=== PATIENT | female | born 1960 | race Caucasian/White ===

== ENCOUNTER 2016-10-28 06:43 | Inpatient (IN) ==
--- NOTE | 2016-10-27 20:44 | Discharge Summary ---
<Ileana Hurtado - Last Filed: 10/27/16 20:41> Date of Encounter: 10/27/16 - Discharge Diagnosis (1) Arthritis of knee, right Priority: Primary Status: Acute (2) Obesity Priority: Secondary Status: Chronic Qualifiers: Obesity type: unspecified obesity type Obesity severity: morbid Qualified Code(s): E66.01 - Morbid (severe) obesity due to excess calories (3) Hypertension Priority: Secondary Status: Chronic Qualifiers: Hypertension type: essential hypertension Qualified Code(s): I10 - Essential (primary) hypertension (4) CAD (coronary artery disease) Priority: Secondary Status: Chronic Qualifiers: Coronary Disease-Associated Artery/Lesion type: unspecified vessel or lesion type [place] vs. 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 insulin use: unspecified mcc insulin use status Qualified Code(s): E11.8 - Type 2 diabetes mellitus with unspecified complications (6) History of panic attacks Priority: Secondary Status: Chronic - Discharge Medications Home Medications: Amiloride/Hydrochlorothiazide [Amiloride HCl-Hctz 5-50 mg Tab] 1 each PO QAM [History] Celecoxib [Celebrex] 200 mg PO BID 08/08/15 [History] Esomeprazole Magnesium [Nexium] 40 mg PO QAM 08/08/15 [History] Losartan [Cozaar] 25 mg PO QAM 08/08/15 [History] Simvastatin [Zocor] 20 mg PO HS 08/16/16 [History] Aspirin Enteric Coated [Aspirin EC] 325 mg PO DAILY #21 tablet. 10/27/16 [Rx] OxyCODONE Immed Rel [Roxicodone 5 MG] 5 - 10 mg PO Q6HR PRN #40 tablet 10/27/16 [Rx] clonazePAM [Klonopin] 0.25 mg PO TID PRN #9 tablet 10/27/16 [Rx] ARIPiprazole [Abilify] 5 mg PO HS 10/28/16 [History] Aripiprazole [Abilify] 5 mg PO DAILY 10/28/16 [History] Aspirin [Lo-Dose Aspirin EC] 81 mg PO DAILY 10/28/16 [History] Cetirizine HCl [Zyrtec] 10 mg PO DAILY 10/28/16 [History] DULoxetine [Cymbalta] 30 mg PO DAILY 10/28/16 [History] Montelukast [Singulair] 10 mg PO HS 10/28/16 [History] Potassium Chloride [K-Tab ER] 20 meq PO BID 10/28/16 [History] Sertraline [Zoloft] 50 mg PO DAILY 10/28/16 [History] Tramadol HCl [Ultram] 50 mg PO Q6H PRN 10/28/16 [History] clonazePAM [Klonopin] 1 mg PO BID PRN 10/28/16 [History] Allergies/Adverse Reactions: Allergies Amoxicillin [From Augmentin] Allergy (Verified 10/28/16 08:36) Hives atenolol Allergy (Verified 10/28/16 08:36) Anaphylaxis clavulanic acid [From Augmentin] Allergy (Verified 10/28/16 08:36) Hives Erythromycin Base [From Erythrocin] Allergy (Verified 10/28/16 08:36) Hives Penicillins Allergy (Verified 10/28/16 08:36) Hives ramipril [From Altace] Allergy (Verified 10/28/16 08:36) Anaphylaxis Primary care physician: Stephany Agustin CNP - Patient Status Disposition: Transfer Inpatient Rehab Fac Condition: Good - Discharge Instructions Follow Up With: Stephany Agustin CNP [Primary Care Provider] - - Hospital Course Hospital course: Ms. Allen is a 55 year old female - Time Spent with Patient Total time spent providing and/or coordinating discharge services: <Bentley Solis - Last Filed: 10/31/16 08:07> Date of Encounter: 10/31/16 Time of Encounter: 08:07 - Discharge Diagnosis (1) Hypertension Priority: Secondary Status: Chronic Qualifiers: Hypertension type: essential hypertension Qualified Code(s): I10 - Essential (primary) hypertension (2) CAD (coronary artery disease) Priority: Secondary Status: Chronic Qualifiers: Coronary Disease-Associated Artery/Lesion type: unspecified vessel or lesion type [place] vs. 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 insulin use status Qualified Code(s): E11.8 - Type 2 diabetes mellitus with unspecified complications (4) Diastolic heart failure Priority: Secondary Status: Chronic Qualifiers: Heart failure chronicity: chronic Qualified Code(s): I50.32 - Chronic diastolic (congestive) heart failure (5) Major depression, recurrent Priority: Secondary Status: Chronic Qualifiers: Active/Remission status: currently active Major depression episode severity : unspecified Qualified Code(s): F33.9 - Major depressive disorder, recurrent , unspecified (6) Arthritis of knee, right Priority: Primary Status: Acute (7) Obesity Priority: Secondary Status: Chronic Qualifiers: Obesity type: unspecified obesity type Obesity severity: morbid Qualified Code(s): E66.01 - Morbid (severe) obesity due to excess calories (8) Acute blood loss anemia Priority: Primary Status: Acute Primary care physician: Stephany Agustin CNP - Patient Status Functional capacity at discharge: uses cane/walker Overall status at discharge: patient is progressing back to baseline - Hospital Course Hospital course: Ms. Allen is a 55 year old female The patient had an uneventful postoperative course. They received antibiotics and physical therapy and were discharged in stable condition. There will follow -up in the office in 2 weeks. Aspirin DVT prophylaxis - Time Spent with Patient Total time spent providing and/or coordinating discharge services:
--- NOTE | 2016-10-27 20:52 | Physician Discharge Referral ---
ExtendedCare Referral Info Transfer To: [facility] Provider in Charge: Will Institutional Level of Care: Skilled - Diagnosis (1) Arthritis of knee, right Status: Acute (2) Obesity Priority: Secondary Status: Chronic (3) Hypertension Priority: Secondary Status: Chronic (4) CAD (coronary artery disease) Priority: Secondary Status: Chronic (5) Diabetes Priority: Secondary Status: Chronic (6) History of panic attacks Priority: Secondary Status: Chronic Prognosis: Good Aware of Diagnosis: Patient Aware of Prognosis: Patient - Transfer Medications Prescriptions: OxyCODONE Immed Rel [Roxicodone 5 MG] 5 - 10 mg PO Q6HR PRN #40 tablet PRN Reason: Pain Aspirin Enteric Coated [Aspirin EC] 325 mg PO DAILY #21 tablet. clonazePAM [Klonopin] 0.25 mg PO TID PRN #9 tablet PRN Reason: Anxiety Home Medications: Amiloride/Hydrochlorothiazide [Amiloride HCl-Hctz 5-50 mg Tab] 1 each PO QAM [History] Celecoxib [Celebrex] 200 mg PO BID PRN 08/08/15 [History] Esomeprazole Magnesium [Nexium] 40 mg PO QAM 08/08/15 [History] Losartan [Cozaar] 25 mg PO QAM 08/08/15 [History] Sertraline [Zoloft] 100 mg PO QAM 08/08/15 [History] Simvastatin [Zocor] 20 mg PO DAILY 08/16/16 [History] metFORMIN [Glucophage] 500 mg PO DAILY 08/16/16 [History] Aspirin Enteric Coated [Aspirin EC] 325 mg PO DAILY #21 tablet. 10/27/16 [Rx] OxyCODONE Immed Rel [Roxicodone 5 MG] 5 - 10 mg PO Q6HR PRN #40 tablet 10/27/16 [Rx] clonazePAM [Klonopin] 0.25 mg PO TID PRN #9 tablet 10/27/16 [Rx] Allergies/Adverse Reactions: Allergies Amoxicillin [From Augmentin] Allergy (Verified 09/03/16 18:57) Hives atenolol Allergy (Verified 09/03/16 18:57) Anaphylaxis clavulanic acid [From Augmentin] Allergy (Verified 09/03/16 18:57) Hives Erythromycin Base [From Erythrocin] Allergy (Verified 04/25/17 18:57) Hives Penicillins Allergy (Verified 09/03/16 18:57) Hives ramipril [From Altace] Allergy (Verified 09/03/16 18:57) Anaphylaxis - Respiratory Orders Smoking Cessation: Smoking cessation has been advised. For more information, call the [place] Tobacco Quit Line at 3-923-NEDR-NOW. - Ancillary Orders May use pressure relief devices daily prn, May go on STACIE w/family/respon republican w /meds at nurse discretion PRN, May consult with Dentist, Balance Engineer, Receiving Barn Custodian PRN - Mobility Orders Ambulate - Rehabiliation Orders Rehab Potential: Good Rehab Orders: ROM Exercises, Evaluation for Physical Therapy, Evaluation for Occupational Therapy - Treatments List/Other: Opsite dressing in place. Keep intact until follow up appointment, only remove if >50% saturated and replace with appropriate dressing. Do not get dressing wet , - Diet Orders Regular CERTIFICATION: I certify that the transfer of the above named patient to an Extended Care Facility is necessary for the continuing treatment of the diagnosis listed. The above information is true and accurate reflection of patient's current condition. Confidential - Redisclosure prohibited without a patient's written consent.
--- NOTE | 2016-10-28 06:24 | History & Physical Report ---
Date of Encounter: 10/28/16 Time of Encounter: 06:24 24 Hour HP Update - Instructions Instructions: If the History and Physical is less than 30 days old and was completed prior to A.M. admission and or procedure and has NOT been updated on calendar day of procedure please complete this update prior to performing procedure. - Update Patient reports changes in Medical Condition: No Changes in examination, assessment, or condition: No Changes in Medication: No Preop tests/diagnostics Reviewed: Yes Surgery Remains Indicated: Yes Consent for Planned Operative Procedure(s) Verified: Yes - Pre-Operative Checklist Preoperative Checklist Indicated: No Prophylactic Antibiotic Ordered: Yes Is VTE Prophylaxis Indicated?: Yes
[2016-10-28] MEDS ORDERED: *HR* FentaNYL (PF) 100 MCG/2 ML VIAL ONE (07:04)
[2016-10-28] MEDS ORDERED: Lidocaine -MPF 2% 2 ML VIAL ONE (07:04)
[2016-10-28] MEDS ORDERED: *HR* Phenylephrine 10 MG/ML VIAL ONE (07:04)
[2016-10-28] MEDS ORDERED: Dexamethasone 4 MG/ML VIAL ONE (07:04)
[2016-10-28] MEDS ORDERED: Ondansetron 4 MG/2 ML VIAL ONE (07:04)
[2016-10-28] MEDS ORDERED: *HR* Midazolam HCl 2 MG/2 ML VIAL ONE ×2 (07:04→08:08)
[2016-10-28] MEDS ORDERED: *HR* Propofol 200 MG/20 ML VIAL IVP ONE (07:05)
[2016-10-28] MEDS ORDERED: Clindamycin 900 MG/50 ML 900 MG/50 ML IV.SOLN IVPB ONE ×3 (07:22→08:17)
[2016-10-28] MEDS ORDERED: Lidocaine -MPF 1% 2 ML VIAL ID ONE (07:22)
[2016-10-28] MEDS ORDERED: Ringers Solution, Lactated 1,000 ML IVC SCH ×2 (07:30→11:13)
--- NOTE | 2016-10-28 07:54 | Anesthesia Evaluation PreOp ---
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 History: Denies Any Significant HX Other Medical History: Diabetes Type II, Other (Morbid Obesity) Anesthesia History: No Prior Anesthetic Complications : No Alcohol Use: rarely Drug use: none Medications and Allergies Amiloride/Hydrochlorothiazide [Amiloride HCl-Hctz 5-50 mg Tab] 1 each PO QAM [History] Celecoxib [Celebrex] 200 mg PO BID PRN 08/08/15 [History] Esomeprazole Magnesium [Nexium] 40 mg PO QAM 08/08/15 [History] Losartan [Cozaar] 25 mg PO QAM 08/08/15 [History] Sertraline [Zoloft] 100 mg PO QAM 08/08/15 [History] Simvastatin [Zocor] 20 mg PO DAILY 08/16/16 [History] metFORMIN [Glucophage] 500 mg PO DAILY 08/16/16 [History] Aspirin Enteric Coated [Aspirin EC] 325 mg PO DAILY #21 tablet. 10/27/16 [Rx] OxyCODONE Immed Rel [Roxicodone 5 MG] 5 - 10 mg PO Q6HR PRN #40 tablet 10/27/16 [Rx] clonazePAM [Klonopin] 0.25 mg PO TID PRN #9 tablet 10/27/16 [Rx] Allergies Amoxicillin [From Augmentin] Allergy (Verified 09/03/16 18:57) Hives atenolol Allergy (Verified 09/03/16 18:57) Anaphylaxis clavulanic acid [From Augmentin] Allergy (Verified 09/03/16 18:57) Hives Erythromycin Base [From Erythrocin] Allergy (Verified 09/03/16 18:57) Hives Penicillins Allergy (Verified 09/03/16 18:57) Hives ramipril [From Altace] Allergy (Verified 09/03/16 18:57) Anaphylaxis - Meds/Allergy Pre-op Review Medications Reviewed: Yes Allergies Reviewed: Yes Beta Blockers on Current Med List: No Anesthesia Results - Labs Laboratory Tests 10/10/16 10/10/16 14:38 14:38 Hgb 14.2 Hct 43.8 Plt Count 327 Sodium 140 Potassium 3.9 BUN 17 Creatinine 0.76 - Imaging EKG: report reviewed (SR) Additional studies: ECHO EF70% Anesthesia Exam O2 Sat Height 1.63 m Height 1.63 m Weight 123.831 kg Weight 123.831 kg O2 Sat by Pulse Oximetry 97 Vital Signs Temp Pulse Resp BP Pulse Ox 97.7 F 68 18 125/80 97 10/28/16 07:10 10/28/16 07:10 10/28/16 07:10 10/28/16 07:10 10/28/16 07:10 Height: 5'4 Weight: 273 lbs NPO (# of Hours): MN Pain Scale: 0 - HEENT Pupil (Motor): Pupils equal, EOMI Mallampati: III Teeth: Normal Oral Opening: Less than or equal to 3 - VENDOR QUALITY SUPERVISOR LOC: Oriented VENDOR QUALITY SUPERVISOR Motor: Normal RUE, Normal LUE, Normal RLE, Normal LLE, Normal Face VENDOR QUALITY SUPERVISOR Sensory: Normal: RUE, LUE, RLE, LLE, Face - Cardiac Rhythm: Regular Murmur: None JVD: No Carotid Bruit: No - Pulmonary Breath Sounds: bilateral Clear Respiratory Effort: Symmetrical Anesthesia Assess/Plan ASA Score: 3 (HTN MO) Modified Mercy Scale for Level of Consciousness: Cooperative, oriented, and tranquil Anesthetic Plan: General, Regional Monitoring Plan: Standard Monitors Recovery Plan: PACU (Discussed GA and RA, agrees to proceed)
[2016-10-28] MEDS ORDERED: Albuterol 2.5 MG/3 ML NEBULIZER ONE (08:17)
--- NOTE | 2016-10-28 08:19 | Anesthesia Procedures ---
Date of Encounter: 10/28/16 Time of Encounter: Procedures: Anesthesia - Nerve Block Procedure Date: 10/28/16 Time: Checklist: Correct Patient Identifier, Correct procedure, History checked Correct side: Right Blood Thinner: No Monitor Applied: EKG, BP, Pulse Oximetry Supplemental Oxygen via Nasal Cannula (L/min): 2 Sedation: Versed (mg): 4 Sedation: Fentanyl (mcg): 100 Indication: Post Op Analgesia Pre-op Neuro Deficits: No Block Type: Femoral, Other (iPACK) Catheter placed: No Sterile Technique: Yes Ultrasound used: Yes Anatomy identified: Yes Visual spread of Local: Yes Neuro Stimulation: Yes Nerve Stimulator Range: 0.2 - 0.4 mA Blood on Needle Aspiration: No Smooth Injection of Local: Yes Pain with Injection of Local: No Prep: Chlorhexadine Needle: 22 x 50 mm Stimuplex, 21 x 100 mm Stimuplex Local: 0.25% Bupivicaine w/Clonidine 20 mcg/cc (30 ml iPACK), Other (marcaince 0.5% with 8 of decadron 30ml femoral) Volume (cc): 60 total Number of Attempts: 1 Complications: None/effective block Vitals: vss
[2016-10-28] MEDS ORDERED: *HR* HYDROmorphone (PF) 1 MG/ML SYRINGE IVP PRN ×2 (09:32→11:13)
--- NOTE | 2016-10-28 10:01 | Orthopedic Operative Note ---
Date of procedure: 10/28/16 Pre-op diagnosis: right knee arthritis Post-op diagnosis: same Procedure: Procedure: Right Total knee replacement Estimated blood loss: 400 cc Hardware: Metal and polyethylene replacement: Biomet Femur: 70 [id number] Tibia: 75 [id number] Najma insert: 10 Patella: 37 Exam Under anesthesia: Loss full extension 10 degrees Procedural Notes: grade 4 arthritic changes all 3 com Operative procedure: The patient was brought to the operating room and placed on the operating room table. After general anesthesia was administered the operative knee was examined. Findings were noted in the exam under anesthesia. The operative extremity was prepped and draped in sterile surgical fashion. The patient received IV antibiotics prior to skin incision. A standard midline incision was made centered over the patella. The incision was made through the skin and subcutaneous tissue. A medial parapatellar tendon approach was performed. Care was taken to preserve tissue along the medial aspect of the patella. And to protect the patella tendon. The deep MCL was released off the medial tibia. The infra patella fat pad was excised. Knee was brought into flexion. grade 4 arthritic changes all 3 compartments. The entry hole was made for the intramedullary femoral guide. The guide was seated in 6 degrees of valgus. Anterior cut was made followed by the distal cut. The PCL the medial and the lateral menisci were excised. The tibia was subluxed forward. The entry hole was made for the intramedullary tibial guide. Guide was seated to resect 2 mm off the more abnormal side. The knee was brought into flexion the distal femur was sized to a 70. The femur was first reamed to a [id number] The femoral guide was seated, the anterior cut was made followed by the posterior condylar cut, followed by the chamfer cuts. The finishing guide was seated the box cut was made. Trial had good fit and fixation The tibia was sized to a an 75 The tibia was first reamed [id number] . Trial reduction revealed full extension no varus valgus instability with the appropriate 10 insert. The patella was everted and cut was made at the level of the insertion of the quadriceps and patella tendon. The patella was sized to a 37 the guide was seated and the lug holes are drilled. Trial reduction revealed excellent patella tracking. All trial components were removed all bony surfaces were irrigated. Components were assembled on the back table. The femur was cemented first followed by the tibia. The 10 Najma was seated and secured. The knee was brought into full extension. The patella was cemented and held in place with the patellar holding clamp. After the cement had hardened, the knee sat for 2 minutes with a Betadine saline solution. The knee was then irrigated out with 2 L of pulse irrigation. The extensor mechanism was closed with #2 FiberWire suture and #2 PDS suture. The subcutaneous tissue was then irrigated and closed deep with #1 PDS suture superficially with 0 PDS suture and skin was closed with skin laiht The patient was then placed in a sterile dressing and a postoperative brace extubated and transferred to recovery room in stable condition. Anesthesia: YVONNE Surgeon: Bentley Solis Production Planning Supervisor: Adela Turcios Condition: stable Disposition: PACU
[2016-10-28 10:56] LABS: Hematocrit 38.6 % (35.3-44.9)
--- NOTE | 2016-10-28 10:59 | Anesthesia Evaluation Post Op ---
Date of Encounter: 10/28/16 Time of Encounter: 10:59 - Vital Signs Vital Signs: Vital Signs/O2 Sat, Most Current Temp Pulse Resp BP Pulse Ox 97.0 F L 71 18 141/83 94 10/28/16 10:29 10/28/16 10:49 10/28/16 10:49 10/28/16 10:49 10/28/16 10:49 - Lungs Lungs: Clear Ascult./Percussion - Airway Airway: Non-obstructed - Cardiovascular Regular Rate - Mental Status Mental Status: Asleep with brisk response to light stimulation - Pain Pain Scale: 3 Pain Scale used: Numeric (1 - 10) - Nausea Vomiting Nausea Vomiting: Not Present - Hydration Hydration: NPO, Has not voided - Discharge PostOp Status: Transfer Patient to floor
[2016-10-28] MEDS ORDERED: Naloxone 0.4 MG/ML INJ IVP PRN (11:13)
[2016-10-28] MEDS ORDERED: clonazePAM 1 MG TABLET PO PRN (11:13)
[2016-10-28] MEDS ORDERED: Dextrose Gel 15 GM PO PRN ×2 (11:13)
[2016-10-28] MEDS ORDERED: MOM Conc 10 ML UD.LIQ PO PRN (11:13)
[2016-10-28] MEDS ORDERED: D5% in Water 1,000 ML IVC PRN (11:13)
[2016-10-28] MEDS ORDERED: Ondansetron 4 MG/2 ML VIAL IVP PRN (11:13)
[2016-10-28] MEDS ORDERED: *HR* Dextrose 50 % in Water (Syg) 50 ML SYRINGE IVP PRN (11:13)
[2016-10-28] MEDS ORDERED: Temazepam 15 MG CAPSULE PO PRN (11:13)
[2016-10-28] MEDS ORDERED: Sennosides 8.6 MG TABLET PO PRN (11:13)
[2016-10-28] MEDS ORDERED: traMADol 50 MG TABLET PO PRN (11:13)
[2016-10-28] MEDS: *HR* OxyCODONE Immed Rel 5 MG TABLET PO PRN ×3 (12:31→21:17)
[2016-10-28] MEDS: Insulin LISPRO 300 UNITS/3 ML VIAL SQ SCH ×3 (14:02→21:17)
[2016-10-28] MEDS ORDERED: Bupivacaine/Clonidine Syringe 1 EACH SYRINGE ONE (17:07)
[2016-10-28] MEDS: Clindamycin 900 MG/50 ML 900 MG/50 ML IV.SOLN IVPB SCH ×2 (17:09→23:47)
[2016-10-28] MEDS: *HR* Enoxaparin 30 MG/0.3 ML SYRINGE SQ SCH (17:09)
[2016-10-28] MEDS ORDERED: *HR* Enoxaparin 30 MG/0.3 ML SYRINGE SQ SCH (18:00)
[2016-10-28] MEDS: Celecoxib 200 MG CAPSULE PO SCH (21:16)
[2016-10-28] MEDS: ARIPiprazole 5 MG TABLET PO SCH (21:17)
[2016-10-29] MEDS: *HR* OxyCODONE Immed Rel 5 MG TABLET PO PRN ×3 (04:06→21:18)
[2016-10-29] MEDS: *HR* Enoxaparin 30 MG/0.3 ML SYRINGE SQ SCH ×2 (05:12→17:28)
[2016-10-29 05:50] LABS: Hematocrit 32.2 % (35.3-44.9)
[2016-10-29 05:52] LABS: Hemoglobin 10.9 g/dL (11.5-15.4)
[2016-10-29 06:06] LABS: BUN/Creatinine Ratio 18 (6-26); Blood Urea Nitrogen 12 mg/dL (7-20); Calcium 8.7 mg/dL (8.6-10.8); Carbon Dioxide 29 mEq/L (19-29); Chloride 100 mEq/L (98-109); Glucose 153 mg/dL (70-99); Osmolality,Calculated 287 (280-300); Potassium 3.9 mEq/L (3.5-4.5); Sodium 137 mEq/L (136-145); eGFR For African Americans > 60 (> 60); eGFR For Non-African Americans > 60 (> 60)
--- NOTE | 2016-10-29 06:38 | Orthopedics Progress Note ---
Date of Encounter: 10/29/16 Time of Encounter: 06:38 - Assessment and Plan (1) Hypertension Current Visit: No Status: Chronic Qualifiers: Hypertension type: essential hypertension Qualified Code(s): I10 - Essential (primary) hypertension (2) CAD (coronary artery disease) Current Visit: No Status: Chronic Qualifiers: Coronary Disease-Associated Artery/Lesion type: unspecified vessel or lesion type [place] vs. transplanted heart: unspecified whether [place] or transplanted heart Associated angina: angina presence unspecified Qualified Code(s): I25.10 - Atherosclerotic heart disease of [place] coronary artery without angina pectoris (3) Diabetes Current Visit: No Status: Chronic Qualifiers: Diabetes mellitus type: type 2 Diabetes mellitus complication status: with unspecified complications Diabetes mellitus intermediate accountant insulin use: unspecified intermediate accountant insulin use status Qualified Code(s): E11.8 - Type 2 diabetes mellitus with unspecified complications (4) Diastolic heart failure Current Visit: No Status: Chronic Qualifiers: Heart failure chronicity: chronic Qualified Code(s): I50.32 - Chronic diastolic (congestive) heart failure (5) Major depression, recurrent Current Visit: No Status: Chronic Qualifiers: Active/Remission status: currently active Major depression episode severity : unspecified Qualified Code(s): F33.9 - Major depressive disorder, recurrent , unspecified (6) Arthritis of knee, right Current Visit: Yes Status: Acute (7) Obesity Current Visit: Yes Status: Chronic Qualifiers: Obesity type: unspecified obesity type Obesity severity: morbid Qualified Code(s): E66.01 - Morbid (severe) obesity due to excess calories Subjective Interval history: Patient was seen this morning doing well without complaints. Afebrile vital signs stable. Operative extremity: Neurovascularly intact Dressing clean dry and intact Calves nontender Assessment and plan: Continue with postoperative care Hematocrit 32 Objective Vital signs: Vital Signs Temp Pulse Resp BP Pulse Ox 10/29/16 03:33 98.2 F 82 17 124/74 95 10/29/16 00:39 98.4 F 74 17 120/69 94 10/28/16 20:27 98.3 F 81 18 112/72 92 10/28/16 15:55 107/62 10/28/16 14:24 96 10/28/16 14:20 70 14 135/79 93 10/28/16 12:35 98.1 F 73 18 123/78 95 10/28/16 12:01 97.7 F 70 18 115/76 93 10/28/16 11:15 97.9 F 71 18 122/80 95 10/28/16 10:59 97.0 F L 71 18 125/82 93 10/28/16 10:49 71 18 141/83 94 10/28/16 10:39 76 14 130/85 93 10/28/16 10:29 97.0 F L 85 14 149/89 95 10/28/16 08:48 64 16 117/70 94 10/28/16 08:39 59 16 119/77 93 10/28/16 08:33 16 16 123/62 94 10/28/16 08:29 97.7 F 68 18 125/80 10/28/16 08:24 62 16 123/82 94 10/28/16 07:10 97.7 F 68 18 125/80 97 Intake and Output 10/28/16 10/28/16 10/29/16 15:59 23:59 07:59 Intake Total 50 / 50 50 / 50 Output Total 850 / 850 Balance -800 / -800 50 / 50 Intake: IV Fluids 50 / 50 50 / 50 Cleocin Premix 900 MG/50 50 / 50 50 / 50 ML 900 mg In 50 ml @ 50 mls/hr IVPB Q8HR [facility] Rx#: [id number] Oral 0 / 0 Output: Urine 50 / 50 Estimated Blood Loss 800 / 800 Other: # Voids 1 Weight 123.831 kg 130.2 kg Blood Glucose* 127 188 Patient Weight 10/29/16 23:59 Weight 130.2 kg - Labs CBC & BMP: 10/29/16 04:16 10/29/16 04:16 Labs: Abnormal lab results Hgb 10.9 g/dL (11.5-15.4) L D 10/29/16 04:16 Hct 32.2 % (35.3-44.9) L 10/29/16 04:16 Glucose 153 mg/dL (70-99) H 10/29/16 04:16 POC Glucose 188 (58-89) H 10/28/16 20:26 - VTE Documentation of Mechanical Device: Venous foot pump, device Consult Discharge Plan - Plan Referrals: Stephany Agustin, TRIM INSTALLER [Primary Care Provider] -
[2016-10-29] MEDS: ARIPiprazole 5 MG TABLET PO SCH (08:23)
[2016-10-29] MEDS: Insulin LISPRO 300 UNITS/3 ML VIAL SQ SCH ×4 (08:23→20:54)
[2016-10-29] MEDS: Celecoxib 200 MG CAPSULE PO SCH ×2 (08:23→20:53)
[2016-10-29] MEDS: Aspirin Enteric Coated 81 MG Tablet PO SCH (08:23)
[2016-10-29] MEDS: Loratadine 10 MG TABLET PO SCH (08:24)
[2016-10-30] MEDS: *HR* Enoxaparin 30 MG/0.3 ML SYRINGE SQ SCH ×2 (05:22→17:46)
[2016-10-30 05:32] LABS: Hematocrit 28.2 % (35.3-44.9)
[2016-10-30 05:34] LABS: Hemoglobin 9.3 g/dL (11.5-15.4)
[2016-10-30 05:43] LABS: BUN/Creatinine Ratio 25 (6-26); Blood Urea Nitrogen 17 mg/dL (7-20); Calcium 8.5 mg/dL (8.6-10.8); Carbon Dioxide 28 mEq/L (19-29); Chloride 101 mEq/L (98-109); Glucose 136 mg/dL (70-99); Osmolality,Calculated 288 (280-300); Potassium 3.6 mEq/L (3.5-4.5); Sodium 137 mEq/L (136-145); eGFR For African Americans > 60 (> 60); eGFR For Non-African Americans > 60 (> 60)
[2016-10-30] MEDS: Insulin LISPRO 300 UNITS/3 ML VIAL SQ SCH ×4 (07:43→21:11)
--- NOTE | 2016-10-30 08:22 | Orthopedics Progress Note ---
Date of Encounter: 10/30/16 Time of Encounter: 08:22 - Assessment and Plan (1) Hypertension Current Visit: No Status: Chronic Qualifiers: Hypertension type: essential hypertension Qualified Code(s): I10 - Essential (primary) hypertension (2) CAD (coronary artery disease) Current Visit: No Status: Chronic Qualifiers: Coronary Disease-Associated Artery/Lesion type: unspecified vessel or lesion type [place] vs. transplanted heart: unspecified whether [place] or transplanted heart Associated angina: angina presence unspecified Qualified Code(s): I25.10 - Atherosclerotic heart disease of [place] coronary artery without angina pectoris (3) Diabetes Current Visit: No Status: Chronic Qualifiers: Diabetes mellitus type: type 2 Diabetes mellitus complication status: with unspecified complications Diabetes mellitus intermediate project manager insulin use: unspecified intermediate project manager insulin use status Qualified Code(s): E11.8 - Type 2 diabetes mellitus with unspecified complications (4) Diastolic heart failure Current Visit: No Status: Chronic Qualifiers: Heart failure chronicity: chronic Qualified Code(s): I50.32 - Chronic diastolic (congestive) heart failure (5) Major depression, recurrent Current Visit: No Status: Chronic Qualifiers: Active/Remission status: currently active Major depression episode severity : unspecified Qualified Code(s): F33.9 - Major depressive disorder, recurrent , unspecified (6) Arthritis of knee, right Current Visit: Yes Status: Acute (7) Obesity Current Visit: Yes Status: Chronic Qualifiers: Obesity type: unspecified obesity type Obesity severity: morbid Qualified Code(s): E66.01 - Morbid (severe) obesity due to excess calories (8) Acute blood loss anemia Current Visit: Yes Status: Acute Subjective Interval history: Patient was seen this morning doing well without complaints. Afebrile vital signs stable. Operative extremity: Neurovascularly intact Dressing clean dry and intact Calves nontender Assessment and plan: Continue with postoperative care Hematocrit 28 Objective Vital signs: Vital Signs Temp Pulse Resp BP Pulse Ox 10/30/16 07:00 98.8 F 84 16 98/58 97 10/29/16 19:54 99.0 F 87 17 92/56 95 10/29/16 14:58 99.0 F 84 20 112/73 96 10/29/16 11:00 97.9 F 70 93 101/63 Intake and Output 10/29/16 10/30/16 10/30/16 23:59 07:59 15:59 Intake Total 100 / 100 Balance 100 / 100 Intake: Oral 100 / 100 Other: # Voids 1 Weight 138 kg Blood Glucose* 157 131 Patient Weight 10/30/16 23:59 Weight 138 kg - Labs CBC & BMP: 10/30/16 05:04 10/30/16 05:04 Labs: Abnormal lab results Hgb 9.3 g/dL (11.5-15.4) L D 10/30/16 05:04 Hct 28.2 % (35.3-44.9) L 10/30/16 05:04 Glucose 136 mg/dL (70-99) H 10/30/16 05:04 POC Glucose 131 (58-89) H 10/30/16 07:26 Calcium 8.5 mg/dL (8.6-10.8) L 10/30/16 05:04 - VTE Documentation of Mechanical Device: Venous foot pump, device Consult Discharge Plan - Plan Referrals: Stephany Agustin, [employer] LICENSE EXAMINER [Primary Care Provider] -
[2016-10-30] MEDS: ARIPiprazole 5 MG TABLET PO SCH ×2 (08:49→22:07)
[2016-10-30] MEDS: Aspirin Enteric Coated 81 MG Tablet PO SCH (08:50)
[2016-10-30] MEDS: Celecoxib 200 MG CAPSULE PO SCH ×2 (08:50→21:38)
[2016-10-30] MEDS: Loratadine 10 MG TABLET PO SCH (08:50)
[2016-10-30] MEDS: *HR* OxyCODONE Immed Rel 5 MG TABLET PO PRN ×2 (09:45→21:37)
[2016-10-31] MEDS: *HR* Enoxaparin 30 MG/0.3 ML SYRINGE SQ SCH (05:18)
[2016-10-31] MEDS: Insulin LISPRO 300 UNITS/3 ML VIAL SQ SCH ×2 (07:37→12:08)
[2016-10-31] MEDS: *HR* OxyCODONE Immed Rel 5 MG TABLET PO PRN ×2 (07:51→13:47)
[2016-10-31] MEDS: Celecoxib 200 MG CAPSULE PO SCH (07:52)
[2016-10-31] MEDS: ARIPiprazole 5 MG TABLET PO SCH (07:52)
[2016-10-31] MEDS: Loratadine 10 MG TABLET PO SCH (07:52)
[2016-10-31] MEDS: Aspirin Enteric Coated 81 MG Tablet PO SCH (07:52)
--- NOTE | 2016-10-31 08:09 | Orthopedics Progress Note ---
Date of Encounter: 10/31/16 Time of Encounter: 08:08 - Assessment and Plan (1) Hypertension Current Visit: No Status: Chronic Qualifiers: Hypertension type: essential hypertension Qualified Code(s): I10 - Essential (primary) hypertension (2) CAD (coronary artery disease) Current Visit: No Status: Chronic Qualifiers: Coronary Disease-Associated Artery/Lesion type: unspecified vessel or lesion type [place] vs. transplanted heart: unspecified whether [place] or transplanted heart Associated angina: angina presence unspecified Qualified Code(s): I25.10 - Atherosclerotic heart disease of [place] coronary artery without angina pectoris (3) Diabetes Current Visit: No Status: Chronic Qualifiers: Diabetes mellitus type: type 2 Diabetes mellitus complication status: with unspecified complications Diabetes mellitus terminal clerk insulin use: unspecified terminal clerk insulin use status Qualified Code(s): E11.8 - Type 2 diabetes mellitus with unspecified complications (4) Diastolic heart failure Current Visit: No Status: Chronic Qualifiers: Heart failure chronicity: chronic Qualified Code(s): I50.32 - Chronic diastolic (congestive) heart failure (5) Major depression, recurrent Current Visit: No Status: Chronic Qualifiers: Active/Remission status: currently active Major depression episode severity : unspecified Qualified Code(s): F33.9 - Major depressive disorder, recurrent , unspecified (6) Arthritis of knee, right Current Visit: Yes Status: Acute (7) Obesity Current Visit: Yes Status: Chronic Qualifiers: Obesity type: unspecified obesity type Obesity severity: morbid Qualified Code(s): E66.01 - Morbid (severe) obesity due to excess calories (8) Acute blood loss anemia Current Visit: Yes Status: Acute Subjective Interval history: Patient was seen this morning doing well without complaints. Afebrile vital signs stable. Operative extremity: Neurovascularly intact Dressing clean dry and intact Calves nontender Assessment and plan: Continue with postoperative care Discharged today Objective Vital signs: Vital Signs Temp Pulse Resp BP Pulse Ox 10/31/16 06:50 99.2 F 79 20 135/81 96 10/31/16 00:31 98.5 F 86 17 114/75 94 10/30/16 20:20 98.7 F 89 17 122/70 95 10/30/16 16:15 98.6 F 84 16 127/85 94 10/30/16 09:41 98 F 84 18 125/79 95 Intake and Output 10/30/16 10/31/16 10/31/16 23:59 07:59 15:59 Intake Total 450 / 450 290 / 290 Output Total 300 / 300 500 / 500 Balance 150 / 150 -210 / -210 Intake: Oral 450 / 450 290 / 290 Output: Urine 300 / 300 500 / 500 Other: # Voids 1 Weight 137.2 kg Blood Glucose* 138 139 Patient Weight 10/31/16 23:59 Weight 137.2 kg - Labs CBC & BMP: 10/30/16 05:04 10/30/16 05:04 Labs: Abnormal lab results Hgb 9.3 g/dL (11.5-15.4) L D 10/30/16 05:04 Hct 28.2 % (35.3-44.9) L 10/30/16 05:04 Glucose 136 mg/dL (70-99) H 10/30/16 05:04 POC Glucose 138 (58-89) H 10/30/16 21:05 Calcium 8.5 mg/dL (8.6-10.8) L 10/30/16 05:04 - VTE Documentation of Mechanical Device: Venous foot pump, device Consult Discharge Plan - Plan Referrals: Stephany Agustin, POWER WASHER [Primary Care Provider] -
[2016-10-31 15:04] VITALS: BP 118/73
== END 2016-10-31 16:25 | DRG 470 ==
LOC: SAMDAY 06:43 → 3NENU 11:10
PROVIDERS: ADMIT Orthopaedic Surgery; ATTEND Orthopaedic Surgery